=== PATIENT | male | born 1965 | race Caucasian/White ===

== ENCOUNTER 2017-01-27 19:49 | Emergency (ER) | payer OTHER ==
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
--- NOTE | 2017-01-28 00:44 | ED MED RECONCILIATION SUMMARY ---
Patient: PAUL OROURKE Medication Reconciliation Report [facility] VisitID: [id number] [address] [place] [address] 51y, M Registration Date/Time: 01/27/2017 Weight: 99.7 kg Height/Length: 72 in. BMI: 29.8 ALLERGIES: Chicken, turkey, food "with feathers" The patient's Home Medications are listed below: CONTINUE TAKING THE FOLLOWING MEDICATIONS: Ibuprofen Oral PriLOSEC Oral Tramadol HCL Oral The source(s) of the original Home Medication information: Not obtained. The following Medications were given to the patient in the Emergency Department: None. The following Medications were prescribed to the patient: Silvadene cream 1% : apply to affected area three times daily for 1 week until better. Dispense fifty (50) grams. No refill. Substitution is permissible -- Lidya Wilkins PA-C
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
--- NOTE | 2017-01-28 00:44 | ED MAR SUMMARY ---
..... Medication Administration Record [facility] [address] [place], [place] [id number] Patient: PAUL OROURKE Visit ID: [id number] 51y, M Weight: 99.7 kg Height/Length: 72 in BMI: 29.8 ALLERGIES: Chicken, turkey, food "with feathers"
--- NOTE | 2017-01-28 00:44 | ED MED RECONCILIATION SUMMARY ---
Patient: PAUL OROURKE Medication Reconciliation Report [facility] VisitID: [id number] [address] [place] [address] 51y, M Registration Date/Time: 01/27/2017 Weight: 99.7 kg Height/Length: 72 in. BMI: 29.8 ALLERGIES: Chicken, turkey, food "with feathers" The patient's Home Medications are listed below: CONTINUE TAKING THE FOLLOWING MEDICATIONS: Ibuprofen Oral PriLOSEC Oral Tramadol HCL Oral The source(s) of the original Home Medication information: Not obtained. The following Medications were given to the patient in the Emergency Department: None. The following Medications were prescribed to the patient: Silvadene cream 1% : apply to affected area three times daily for 1 week until better. Dispense fifty (50) grams. No refill. Substitution is permissible -- Lidya Wilkins PA-C
--- NOTE | 2017-01-28 00:44 | ED MAR SUMMARY ---
..... Medication Administration Record [facility] [address] [place], [place] [id number] Patient: PAUL OROURKE Visit ID: [id number] 51y, M Weight: 99.7 kg Height/Length: 72 in BMI: 29.8 ALLERGIES: Chicken, turkey, food "with feathers"
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
== END 2017-01-27 21:15 | disposition home or self-care (01) ==
LOC: ED SRH 19:49
DX: T23.142A Burn of first degree of multiple left fingers (nail), including thumb, initial encounter (principal); T31.0 Burns involving less than 10% of body surface; X10.2XXA Contact with fats and cooking oils, initial encounter; Y93.G3 Activity, cooking and baking; Y99.8 Other external cause status; Y92.009 Unspecified place in unspecified non-institutional (private) residence as the place of occurrence of the external cause; I10 Essential (primary) hypertension; Z91.018 Allergy to other foods